=== PATIENT | female | born 1980 | race Hispanic/Latino ===

== ENCOUNTER 2019-12-25 11:37 | Emergency (ER) | payer SELFPAY ==
[~2019-12-25] VITALS: Ht 157.5 cm; Wt 90.7 kg
--- NOTE | 2019-12-25 11:55 | NUR ---
PT REFUSED COVID SWAB AND CXR; PT WALKED OUT OF WAITING STATING SHE DOESN'T HAVE THE PATIENCE TO WAIT AND LEFT; NOTIFIED
--- NOTE | 2019-12-25 13:56 | Emergency Department Note ---
History of Present Illnes History of Present Illness Chief Complaint: General Medicine Complaints History of Present Illness This is a 39 year old female arrives to the ED with concerns of Covid 19- patient states her is the ED and she wants to visit him. Patient states she feels she might also have the illness. Patient is requesting baby cohort the same room. Historian: Patient Arrival Mode: Car Onset (how long ago): day(s) Severity: mild Onset quality: gradual Duration (how long): day(s) Timing of current episode: constant Progression: waxing and waning Relieving factors: none Past Medical/Family History Physician Review I have reviewed the patient's past medical and family history. Any updates have been documented here. 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 Social History Smoking Cessation: Former smoker Counseling Performed: No Alcohol Use: None Any Illegal Drug Use: No TB Exposure/Symptoms: No Physically hurt or threatened: No Other Any Pre-Existing Lines (PICC,: No Is patient up to date on immun: No Last Flu: OOD Last Pneumovax: OOD Review of Systems Review of Systems Constitutional: Reports as per HPI, Reports malaise EENTM: Reports no symptoms Cardiovascular: Reports no symptoms Respiratory: Reports as per HPI, Reports cough Gastrointestinal: Reports no symptoms Genitourinary: Reports no symptoms Musculoskeletal: Reports no symptoms Integumentary: Reports no symptoms Neurological: Reports no symptoms Psychological: Reports no symptoms Endocrine: Reports no symptoms Hematological/Lymphatic: Reports no symptoms Review of other systems: All other systems negative Physical Exam Related Data Allergies: Coded Allergies: No Known Allergies (Unverified , 12/25/19) Triage Vital Signs Vital Signs Date Time Temp Pulse Resp B/P (MAP) Pulse Ox O2 Delivery O2 Flow Rate FiO2 12/25/19 11:42 97.0 83 20 164/102 96 Vital signs reviewed: Yes Physical Exam CONSTITUTIONAL Constitutional: Present well-developed, Present well-nourished HENT HENT: Present normocephalic, Present atraumatic, Present oropharynx clear/moist, Present nose normal HENT L/R: Present left ext ear normal, Present right ext ear normal EYES Eyes: Reports PERRL, Reports conjunctivae normal NECK Neck: Present ROM normal PULMONARY Pulmonary: Present effort normal, Present breath sounds normal CARDIOVASCULAR Cardiovascular: Present regular rhythm, Present heart sounds normal, Present capillary refill normal, Present normal rate GASTROINTESTINAL Abdominal: Present soft, Present nontender, Present bowel sounds normal GENITOURINARY Genitourinary: Present exam deferred SKIN Skin: Present warm, Present dry MUSCULOSKELETAL Musculoskeletal: Present ROM normal NEUROLOGICAL Neurological: Present alert, Present oriented x 3, Present no gross motor or sensory deficits PSYCHOLOGICAL Psychological: Present mood/affect normal, Present judgement normal Assessment & Plan Medical Decision Making MDM 39-year-old female brought to the ED with concerns of husbands recent ED visit. Patient nontoxic well-appearing. Patient later reported she feels better and did not want an x-ray or covid swab in the ER. Patient requested to be discharged home. Patient states she just wanted to get up-to-date be in the room with him. Expressed the concerns of Covid-19 related infection, patient states she did not know that the virus was infectious. Patient states she will follow up with her PCP for further workup and management. Assessment & Plan Final Impression: (1) COVID-19 Depart Disposition: HOME, SELF-CARE Last Vital Signs Date Time Temp Pulse Resp B/P (MAP) Pulse Ox O2 Delivery O2 Flow Rate FiO2 12/25/19 11:42 97.0 83 20 164/102 96 SAVI JAUREGUI DO Dec 25, 2019 13:56
== END 2019-12-25 11:59 | disposition home or self-care (01) ==
LOC: ER 11:37
DX: R05 Cough (principal); U07.1 COVID-19
CPT/HCPCS: 99282